=== PATIENT | female | born 1945 | race Caucasian/White ===

== ENCOUNTER 2016-11-06 14:43 | Emergency (ER) | payer MEDICARE, OTHER ==
--- NOTE | 2016-11-06 15:42 | XRAY Preliminary Report ---
Exam: XR Chest 2 View PA/LAT IMPRESSION: Normal 2-view chest radiography. [facility] SITE ID: [id number]
--- NOTE | 2016-11-06 15:44 | XRAY Report ---
EXAM: CHEST RADIOGRAPHY EXAM DATE: 11/06/2016 03:19 PM. CLINICAL HISTORY: Fatigue. Chest congestion for 3 days. COMPARISON: None. TECHNIQUE: 2 views. FINDINGS: Lungs/Pleura: No focal opacities evident. No pleural effusion. No pneumothorax. Normal volumes. Mediastinum: Heart and mediastinal contours are unremarkable. Other: No bony abnormality noted. IMPRESSION: Normal 2-view chest radiography. [facility] Referring Provider Line: [phone] SITE ID: [id number]
[2016-11-06 16:11] VITALS: BP 148/77
[2016-11-06 16:11] LABS: BILIRUBIN,URINE NEGATIVE (NEGATIVE); UA CHARGE (STRIP ONLY) YES; UR CULTURE IF IND NOT INDICATED
--- NOTE | 2016-11-06 16:47 | ED Physician Documentation ---
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 - Present Medications Home Medications: Ambulatory Orders Medication Instructions Recorded Confirmed Amitriptyline [Elavil] 25 mg PO PRN PRN 11/06/16 11/06/16 Propranolol ER [Inderal LA] 1 tab PO DAILY 11/06/16 11/06/16 - Allergies Allergies/Adverse Reactions: Allergies Allergy/AdvReac Type Severity Reaction Status Date / Time No Known Drug Allergies Allergy Verified 11/06/16 14:59 - Social History Does the pt smoke?: No Smoking Status: Never smoker Does the pt drink ETOH?: No Does the pt have substance abuse?: No - Immunizations Immunizations are current?: Yes - POLST Patient has POLST: No PD ED PE NORMAL - Vitals Vital signs reviewed: Yes - General General: Alert and oriented X 3 - HEENT HEENT: Moist mucous membranes, Pharynx benign - Neck Neck: Supple, no meningeal sign - Cardiac Cardiac: RRR - Respiratory Respiratory: No respiratory distress, Clear bilaterally - Abdomen Abdomen: Soft, Non tender - Derm Derm: Normal color - Extremities Extremities: No deformity - Neuro Neuro: Alert and oriented X 3 - Psych Psych: Normal mood Results - Vitals Vitals: Vital Signs - 24 hr 11/06/16 11/06/16 14:58 16:11 Temperature 36.3 C L 36.4 C L Heart Rate 63 63 Respiratory 16 18 Rate Blood Pressure 149/77 H 148/77 H O2 Saturation 98 100 Oxygen O2 Source Room air - Labs Labs: Laboratory Tests 11/06/16 11/06/16 11/06/16 16:00 16:55 16:55 WBC 10.3 RBC 4.27 Hgb 14.1 Hct 39.8 MCV 93.2 MCH 33.0 H MCHC 35.4 RDW 12.5 Plt Count 420 MPV 7.1 L Neut # 6.3 Lymph # 3.3 [place] # 0.6 Eos # 0.0 Baso # 0.0 Absolute Nucleated RBC 0.00 Nucleated RBCs 0.0 Sodium 138 Potassium 3.6 Chloride 99 L Carbon Dioxide 29 Anion Gap 10.0 BUN 14 Creatinine 1.0 Estimated GFR (MDRD) 55 L Glucose 98 Lactic Acid Calcium 9.5 Urine Color YELLOW Urine Clarity CLEAR Urine pH 6.0 Ur Specific [place] 1.020 Urine Protein NEGATIVE Urine Glucose (UA) NEGATIVE Urine Ketones NEGATIVE Urine Occult Blood NEGATIVE Urine Nitrite NEGATIVE Urine Bilirubin NEGATIVE Urine Urobilinogen 0.2 (NORMAL) Ur Leukocyte Esterase NEGATIVE Ur Microscopic Review NOT INDICATED Urine Culture Comments NOT INDICATED 11/06/16 17:01 WBC RBC Hgb Hct MCV MCH MCHC RDW Plt Count MPV Neut # Lymph # [place] # Eos # Baso # Absolute Nucleated RBC Nucleated RBCs Sodium Potassium Chloride Carbon Dioxide Anion Gap BUN Creatinine Estimated GFR (MDRD) Glucose Lactic Acid 0.7 Calcium Urine Color Urine Clarity Urine pH Ur Specific [place] Urine Protein Urine Glucose (UA) Urine Ketones Urine Occult Blood Urine Nitrite Urine Bilirubin Urine Urobilinogen Ur Leukocyte Esterase Ur Microscopic Review Urine Culture Comments - Rads (name of study) CXR Radiology: See rad report (NACPD) Departure - Departure Disposition: 01 Home, Self Care Clinical Impression: Chills Condition: Good Instructions: ED Bacteremia Rule Out Comments: Right now all your tests are reassuring. The xray does not show pneumonia The urine does not show an infection The lactate which helps identify blood stream infections and sepsis was normal That does not mean an infection is not there - just that it cannot be identified at this time - you could be in the early stages of something significant like your prior infections. At this point I recommend we wait and see how things progress and develop over the next 24-48 hours If you feel worse, come back to the ER And if your blood or urine cultures are positive we will call you. Otherwise see your PMD for a recheck next week Also please get your blood pressure rechecked - it was high today
[2016-11-06 17:08] LABS: BASOPHILS % (AUTO) 0.4 %; EOSINOPHILS % (AUTO) 0.4 %; HCT - HEMATOCRIT 39.8 % (37.0-47.0); HGB - HEMOGLOBIN 14.1 g/dL (12.0-16.0); LYMPHOCYTES # (AUTO) 3.3 10^3/uL (1.5-3.5); LYMPHOCYTES % (AUTO) 32.3 %; MEAN CORPUSCULAR HGB CONC 35.4 g/dL (32.0-36.0); MEAN CORPUSCULAR VOLUME 93.2 fL (81.0-99.0); MEAN PLATELET VOLUME 7.1 fL (7.9-10.8); MONOCYTES # (AUTO) 0.6 10^3/uL (0.0-1.0); MONOCYTES % (AUTO) 5.6 %; NEUTROPHILS # (AUTO) 6.3 10^3/uL (1.5-6.6); NEUTROPHILS % (AUTO) 61.3 %; RED BLOOD COUNT 4.27 10^6/uL (4.20-5.40); RED CELL DISTRIBUTION WIDTH 12.5 % (12.0-15.0); UNCORRECTED WHITE BLOOD COUNT 10.3 x10^3/uL; WHITE BLOOD COUNT 10.3 x10^3/uL (4.8-10.8)
[2016-11-06 17:16] LABS: CALCIUM 9.5 mg/dL (8.5-10.3); POTASSIUM 3.6 mmol/L (3.5-5.0)
== END 2016-11-06 18:32 | disposition home or self-care (01) ==
LOC: ED 14:43
DX: R68.83 Chills (without fever) (principal)
CPT/HCPCS: 36415; 71020; 80048; 81001; 81003; 83605; 85025; 87040; 87086; 99283

== ENCOUNTER 2018-08-10 16:26 | Emergency (ER) | payer MEDICARE, OTHER ==
[2018-08-10 16:59] LABS: BASOPHILS # (AUTO) 0.1 10^3/uL (0.0-0.1); BASOPHILS % (AUTO) 0.8 %; EOSINOPHILS # (AUTO) 0.1 10^3/uL (0.0-0.7); EOSINOPHILS % (AUTO) 1.4 %; HGB - HEMOGLOBIN 13.3 g/dL (12.0-16.0); LYMPHOCYTES # (AUTO) 3.6 10^3/uL (1.5-3.5); LYMPHOCYTES % (AUTO) 39.9 %; MEAN CORPUSCULAR HEMOGLOBIN 32.9 pg (27.0-31.0); MEAN CORPUSCULAR VOLUME 96.8 fL (81.0-99.0); MEAN PLATELET VOLUME 9.4 fL (7.9-10.8); MONOCYTES # (AUTO) 0.9 10^3/uL (0.0-1.0); MONOCYTES % (AUTO) 9.5 %; NEUTROPHILS # (AUTO) 4.4 10^3/uL (1.5-6.6); NEUTROPHILS % (AUTO) 48.2 %; PLT - PLATELET COUNT 407 10^3/uL (130-450); RED BLOOD COUNT 4.04 10^6/uL (4.20-5.40); RED CELL DISTRIBUTION WIDTH 12.5 % (12.0-15.0); WHITE BLOOD COUNT 9.1 x10^3/uL (4.8-10.8)
--- NOTE | 2018-08-10 17:05 | ED Physician Documentation ---
History of Present Illness - Stated complaint Stated Complaint: WEAK/TIRES/CHILLS - Chief complaint Chief Complaint: General - History obtained from History obtained from: Patient - History of Present Illness Timing: How many weeks ago (1) Pain level max: 0 Pain level now: 0 - Additonal information Additional information: 73-year-old female presents to the emergency department stating that she "just does not feel well". She is really unable to explain this any further other than she just feels tired. Denies any fevers, nausea, vomiting, abdominal pain. No chest pain. No shortness of breath. No recent travel. No recent antibiotics. Better with rest and worse with exertion. No changes to her medications. Review of Systems Respiratory: denies: Cough GI: denies: Nausea, Vomiting, Diarrhea : denies: Dysuria, Frequency, Hesitancy Skin: denies: Rash Musculoskeletal: denies: Neck pain, Back pain Neurologic: reports: Generalized weakness. 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 - Present Medications Home Medications: Ambulatory Orders Medication Instructions Recorded Confirmed Amitriptyline [Elavil] 25 mg PO PRN PRN 11/06/16 11/06/16 Propranolol ER [Inderal LA] 1 tab PO DAILY 11/06/16 11/06/16 - Allergies Allergies/Adverse Reactions: Allergies Allergy/AdvReac Type Severity Reaction Status Date / Time No Known Drug Allergies Allergy Verified 08/10/18 16:33 - Social History Does the pt smoke?: No Smoking Status: Never smoker Does the pt drink ETOH?: No Does the pt have substance abuse?: No - Immunizations Immunizations are current?: Yes - POLST Patient has POLST: No PD ED PE NORMAL - Vitals Vital signs reviewed: Yes - General General: Alert and oriented X 3, No acute distress, Well developed/nourished - HEENT HEENT: PERRL, Moist mucous membranes - Neck Neck: Supple, no meningeal sign - Cardiac Cardiac: RRR, No murmur, Strong equal pulses - Respiratory Respiratory: No respiratory distress, Clear bilaterally - Abdomen Abdomen: Soft, Non tender, Non distended - Back Back: No spinal TTP - Derm Derm: Warm and dry - Extremities Extremities: No edema, No calf tenderness / cord - Neuro Neuro: Alert and oriented X 3 - Psych Psych: Normal mood, Normal affect Results - Vitals Vitals: Vital Signs - 24 hr 08/10/18 08/10/18 16:29 19:19 Temperature 36.5 C 36.4 C L Heart Rate 66 63 Respiratory 17 17 Rate Blood Pressure 175/75 H 154/73 H O2 Saturation 100 100 Oxygen O2 Source Room air - EKG (time done) 1639 Rate: Rate (enter#) (68) Rhythm: NSR [place]: Normal Intervals: Normal HI QRS: Normal Ischemia: Normal ST segments - Labs Labs: Laboratory Tests 08/10/18 08/10/18 08/10/18 16:45 16:45 16:45 WBC 9.1 RBC 4.04 L Hgb 13.3 Hct 39.1 MCV 96.8 MCH 32.9 H MCHC 34.0 RDW 12.5 Plt Count 407 MPV 9.4 Neut # (Auto) 4.4 Lymph # (Auto) 3.6 H [place] # (Auto) 0.9 Eos # (Auto) 0.1 Baso # (Auto) 0.1 Absolute Nucleated RBC 0.00 Nucleated RBC % 0.0 Sodium 136 Potassium 4.2 Chloride 101 Carbon Dioxide 26 Anion Gap 9.0 BUN 15 Creatinine 1.1 H Estimated GFR (MDRD) 49 L Glucose 100 Calcium 9.3 Total Bilirubin 0.7 AST 22 ALT 25 Alkaline Phosphatase 84 Troponin I < 0.04 Total Protein 7.8 Albumin 4.5 Globulin 3.3 Albumin/Globulin Ratio 1.4 Lipase 33 TSH Urine Color Urine Clarity Urine pH Ur Specific [place] Urine Protein Urine Glucose (UA) Urine Ketones Urine Occult Blood Urine Nitrite Urine Bilirubin Urine Urobilinogen Ur Leukocyte Esterase Ur Microscopic Review Urine Culture Comments 08/10/18 08/10/18 16:45 18:00 WBC RBC Hgb Hct MCV MCH MCHC RDW Plt Count MPV Neut # (Auto) Lymph # (Auto) [place] # (Auto) Eos # (Auto) Baso # (Auto) Absolute Nucleated RBC Nucleated RBC % Sodium Potassium Chloride Carbon Dioxide Anion Gap BUN Creatinine Estimated GFR (MDRD) Glucose Calcium Total Bilirubin AST ALT Alkaline Phosphatase Troponin I Total Protein Albumin Globulin Albumin/Globulin Ratio Lipase TSH 2.89 Urine Color YELLOW Urine Clarity CLEAR Urine pH 6.5 Ur Specific [place] <=1.005 Urine Protein NEGATIVE Urine Glucose (UA) NEGATIVE Urine Ketones NEGATIVE Urine Occult Blood NEGATIVE Urine Nitrite NEGATIVE Urine Bilirubin NEGATIVE Urine Urobilinogen 0.2 (NORMAL) Ur Leukocyte Esterase NEGATIVE Ur Microscopic Review NOT INDICATED Urine Culture Comments NOT INDICATED - Rads (name of study) cxr Radiology: Prelim report reviewed, EMP read contemporaneously, See rad report (No acute cardiopulmonary process. ) PD MEDICAL DECISION MAKING - ED course Complexity details: reviewed results, re-evaluated patient, considered differ ential, d/w patient ED course: 73-year-old female with general feeling of unwellness of unclear etiology. No acute lab findings, EKG, chest x-ray. Recommend a cardiac stress test and echocardiogram with her doctor. She is well-appearing, nontoxic. Afebrile. Tolerating p.o. without difficulty. Ambulating with normal gait. Patient counseled regarding signs and symptoms for which I believe and urgent re- evaluation would be necessary. Patient with good understanding of and agreement to plan and is comfortable going home at this time This document was made in part using voice recognition software. While efforts are made to proofread this document, sound alike and grammatical errors may occur. Departure - Departure Disposition: 01 Home, Self Care Clinical Impression: Weakness Condition: Good Instructions: ED Weakness [facility] Follow-Up: OUMAR IVY [Primary Care Provider] - Within 3 Days Comments: The cause of your symptoms is unclear today. Your testing is normal. You should have a cardiac echo performed with your doctor. Return if you worsen Discharge Date/Time: 08/10/18 19:20
[2018-08-10 17:07] LABS: ALBUMIN 4.5 g/dL (3.2-5.5); ALBUMIN/GLOBULIN RATIO 1.4 (1.0-2.2); BILIRUBIN,TOTAL 0.7 mg/dL (0.2-1.0); CALCIUM 9.3 mg/dL (8.5-10.3); CREATININE 1.1 mg/dL (0.4-1.0); TOTAL PROTEIN 7.8 g/dL (6.7-8.2)
[2018-08-10 18:13] LABS: BILIRUBIN,URINE NEGATIVE (NEGATIVE); GLUCOSE, URINE (UA) NEGATIVE (NEGATIVE); KETONES,URINE (UA) NEGATIVE (NEGATIVE); LEUKOCYTE ESTERASE, URINE NEGATIVE (NEGATIVE); NITRITE,URINE NEGATIVE (NEGATIVE); OCCULT BLOOD,URINE NEGATIVE (NEGATIVE); PH,URINE 6.5 PH (5.0-7.5); PROTEIN,URINE NEGATIVE (NEGATIVE); UROBILINOGEN,URINE 0.2 (NORMAL) E.U./dL (NORMAL)
[2018-08-10 18:18] LABS: CLARITY,URINE CLEAR (CLEAR)
--- NOTE | 2018-08-10 18:53 | XRAY Report ---
Reason: dyspnea Procedure Date: 08/10/2018 Accession Number: [id number] / [id number] Procedure: XR - Chest 1 View X-Ray CPT Code: 98163 FULL RESULT: EXAM: CHEST RADIOGRAPHY EXAM DATE: 08/10/2018 06:40 PM. CLINICAL HISTORY: Dyspnea. COMPARISON: CHEST 2 VIEW PA/LAT 11/06/2016 3:12 PM. TECHNIQUE: 1 view. FINDINGS: Lungs/Pleura: No focal opacities evident. No pleural effusion. No pneumothorax. Mediastinum: Within exam limitations, the cardiomediastinal contour is normal. Other: None. IMPRESSION: No acute cardiopulmonary process. [facility]
[2018-08-10 19:20] VITALS: BP 154/73
== END 2018-08-10 19:20 | disposition home or self-care (01) ==
LOC: ED 16:26
DX: R53.1 Weakness (principal)
CPT/HCPCS: 36415; 71045; 80053; 81001; 81003; 83690; 84443; 84484; 85025; 87086; 93005; 99283

== ENCOUNTER 2019-04-03 13:40 | Emergency (ER) | payer MEDICARE, OTHER ==
[2019-04-03 14:07] LABS: BILIRUBIN,URINE NEGATIVE (NEGATIVE); GLUCOSE, URINE (UA) NEGATIVE (NEGATIVE); KETONES,URINE (UA) NEGATIVE (NEGATIVE); LEUKOCYTE ESTERASE, URINE LARGE (NEGATIVE); NITRITE,URINE NEGATIVE (NEGATIVE); OCCULT BLOOD,URINE LARGE (NEGATIVE); PROTEIN,URINE 30 mg/dL (NEGATIVE); UROBILINOGEN,URINE 0.2 (NORMAL) E.U./dL (NORMAL)
[2019-04-03 14:08] LABS: CLARITY,URINE CLOUDY (CLEAR)
[2019-04-03 14:15] LABS: BACTERIA,URINE None Seen /HPF (None Seen); RBC,URINE 0-5 /HPF (0-5); SQUAMOUS EPITHELIAL CELL,UR NONE SEEN (<= Few)
[2019-04-03] MEDS ORDERED: cephALEXin 250 MG CAPSULE PO STA (15:47)
[2019-04-03] MEDS ORDERED: PHENAZOPYRIDINE 100 MG TABLET PO STA (15:48)
--- NOTE | 2019-04-03 15:49 | ED Physician Documentation ---
History of Present Illness - Stated complaint Stated Complaint: FEM - Chief complaint Chief Complaint: UTI - History obtained from History obtained from: Patient - History of Present Illness Timing: Today Pain level max: 2 Pain level now: 1 - Additonal information Additional information: 74-year-old female with dysuria, urgency, frequency started today. No fevers. No nausea. No vomiting. No back pain. No abdominal pain. Worse with urination, better with rest. Feels similar to past UTIs. 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 - Present Medications Home Medications: Ambulatory Orders Medication Instructions Recorded Confirmed Amitriptyline [Elavil] 25 mg PO PRN PRN 11/06/16 11/06/16 Propranolol ER [Inderal LA] 1 tab PO DAILY 11/06/16 11/06/16 Cephalexin [Keflex] 500 mg PO Q6H #20 capsule 04/03/19 Phenazopyridine HCl [Pyridium] 200 mg PO TID PRN #6 tablet 04/03/19 - Allergies Allergies/Adverse Reactions: Allergies Allergy/AdvReac Type Severity Reaction Status Date / Time No Known Drug Allergies Allergy Verified 04/03/19 13:46 - Social History Does the pt smoke?: No Smoking Status: Never smoker Does the pt drink ETOH?: No Does the pt have substance abuse?: No - Immunizations Immunizations are current?: Yes - POLST Patient has POLST: No PD ED PE NORMAL - Vitals Vital signs reviewed: Yes - General General: Alert and oriented X 3, No acute distress - HEENT HEENT: Moist mucous membranes - Abdomen Abdomen: Soft, Non tender, Non distended - Back Back: No CVA TTP - Derm Derm: Warm and dry - Neuro Neuro: Alert and oriented X 3 Results - Vitals Vitals: Vital Signs - 24 hr 04/03/19 13:47 Temperature 36.5 C Heart Rate 78 Respiratory 14 Rate Blood Pressure 156/82 H O2 Saturation 100 Oxygen O2 Source Room air - Labs Labs: Laboratory Tests 04/03/19 13:59 Urine Color YELLOW Urine Clarity CLOUDY Urine pH 7.0 Ur Specific [place] 1.010 Urine Protein 30 H Urine Glucose (UA) NEGATIVE Urine Ketones NEGATIVE Urine Occult Blood LARGE H Urine Nitrite NEGATIVE Urine Bilirubin NEGATIVE Urine Urobilinogen 0.2 (NORMAL) Ur Leukocyte Esterase LARGE H Urine RBC 0-5 Urine WBC 6-10 H Ur Squamous Epith Cells NONE SEEN Urine Bacteria None Seen Ur Microscopic Review INDICATED Urine Culture Comments INDICATED PD MEDICAL DECISION MAKING - ED course Complexity details: considered differential, d/w patient ED course: Patient with a UTI. Will place on Pyridium and Keflex. Patient is well- appearing, nontoxic. No pyelonephritis. No sepsis. Patient counseled regarding signs and symptoms for which I believe and urgent re-evaluation would be necessary. Patient with good understanding of and agreement to plan and is comfortable going home at this time This document was made in part using voice recognition software. While efforts are made to proofread this document, sound alike and grammatical errors may occur. Departure - Departure Disposition: 01 Home, Self Care Clinical Impression: Urinary tract infection Qualifiers: Urinary tract infection type: acute cystitis Hematuria presence: without hematuria Qualified Code(s): N30.00 - Acute cystitis without hematuria Condition: Good Instructions: ED UTI Cystitis Female Follow-Up: OUMAR IVY [Primary Care Provider] - As Needed Prescriptions: Cephalexin [Keflex] 500 mg PO Q6H #20 capsule Phenazopyridine HCl [Pyridium] 200 mg PO TID PRN #6 tablet PRN Reason: dysuria Comments: Take all antibiotics until gone. Return if you worsen. Follow-up with your doctor if you are not better in 1 week.
[2019-04-03 15:56] VITALS: BP 150/80
== END 2019-04-03 15:55 | disposition home or self-care (01) ==
LOC: ED 13:40
DX: N30.00 Acute cystitis without hematuria (principal)
CPT/HCPCS: 81001; 87077; 87086; 87181; 99283; 99284; A9270; 81003

== ENCOUNTER 2021-08-07 16:52 | Emergency (ER) | payer MEDICARE, OTHER ==
--- NOTE | 2021-08-07 19:23 | ED Physician Documentation ---
History of Present Illness - Stated complaint Stated Complaint: SINUS PRESSURE - Chief complaint Chief Complaint: Heent - Additonal information Additional information: 76-year-old female presents emergency department for evaluation of significant tenderness to the right frontal and maxillary sinuses. She also had about 20 minutes of epistaxis this morning which she was able to control with pressure. She is not anticoagulated. Sinus pressure and pain began about 3 days ago. She reports a history of chronic sinus and allergy Disorder for which she does daily nasal spray, Nasonex as well as allergy medications. She has been having a lot of yellow drainage from the nose. She is also begun to have watering from the right eye with pain. No fevers. No recent travel. Fully vaccinated for COVID-19. Denies chest pain cough congestion or sore throat. 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 - Present Medications Home Medications: Ambulatory Orders Medication Instructions Recorded Confirmed Amitriptyline [Elavil] 25 mg PO PRN PRN 11/06/16 11/06/16 Propranolol ER [Inderal LA] 1 tab PO DAILY 11/06/16 11/06/16 Phenazopyridine HCl [Pyridium] 200 mg PO TID PRN #6 tablet 04/03/19 cephALEXin [Keflex] 500 mg PO Q6H #20 capsule 04/03/19 Amox/Clav 875/125 [Augmentin] 1 each PO Q12H #20 tablet 08/07/21 - Allergies Allergies/Adverse Reactions: Allergies Allergy/AdvReac Type Severity Reaction Status Date / Time No Known Drug Allergies Allergy Verified 08/07/21 17:08 - Social History Does the pt smoke?: No Smoking Status: Never smoker Does the pt drink ETOH?: No Does the pt have substance abuse?: No - Immunizations Immunizations are current?: Yes - POLST Patient has POLST: No PD ED PE EXPANDED - General General: Alert, No acute distress, Well developed/nourished - HEENT HEENT: Ears normal, Pharynx normal, Other (Percussion tenderness of the right frontal maxillary sinuses) - Cardiac Cardiac: Regular Rate, Murmur Present, Radial strong equal, Pedal strong equal, Cap refill < 2 sec - Respiratory Respiratory: Clear to ausultation jessie. No: Distress, Labored - Abdomen Abdomen: Normal Bowel sounds. No: Tender to palpation Results - Vitals Vitals: Vital Signs - 24 hr 08/07/21 17:08 Temperature 36.3 C L Heart Rate 78 Respiratory 16 Rate Blood Pressure 158/60 H O2 Saturation 100 Oxygen O2 Source Nasal cannula - Rads (name of study) max fac ct Radiology: Final report received (Complete opacification left sphenoid sinus. Moderate mucosal thickening within the left posterior ethmoid air cells. Mastoid air cells are aerated. Sinus disease no fracture.) PD MEDICAL DECISION MAKING - ED course Complexity details: reviewed results, re-evaluated patient, considered differential, d/w patient ED course: 76-year-old female presents emergency department for evaluation of 3 days acute right-sided facial pain. She does have watering of the right eye. Her pain seems out of proportion for reported history of chronic sinus congestion. She has not had any fevers. A maxillofacial CT was completed and there were no findings to suggest mass or lesion. However she does have fairly significant bilateral sinus disease. She is started on Augmentin. Do recommend saline nasal rinses followed by Nasonex. Follow-up with PCP. Given the extensive disease may benefit from referral to an ear nose throat doctor. Departure - Departure Disposition: 01 Home, Self Care Clinical Impression: Right sided facial pain Sinusitis Qualifiers: Sinusitis location: unspecified location Chronicity: chronic Qualified Code(s): J32.9 - Chronic sinusitis, unspecified Condition: Stable Record reviewed to determine appropriate education?: Yes Prescriptions: Amox/Clav 875/125 [Augmentin] 1 each PO Q12H #20 tablet Comments: Liliane you are seen today in the emergency department for sudden severe pain on the right side of your face. You do have a chronic history of sinus congestion. I do recommend that when you are in the shower you use a saline nasal rinse or the [place]mler pot. When out of the shower after using the nasal rinse then use the Nasonex nasal spray. Please fill the prescription for the antibiotics and begin taking twice daily as directed. Given the extensive sinus disease seen on the CT scan and the chronicity of your symptoms you may benefit from referral to an ear nose throat doctor to determine if you would benefit from further therapy through the specialist. If despite this treatment you have facial swelling, develop any fevers, have purulent drainage from your sinuses then please return immediately to the ER for second evaluation.
--- NOTE | 2021-08-07 19:45 | CT Report ---
PROCEDURE: MAXILLOFACIAL WO INDICATIONS: Right sinus pressure and congestion. Epistaxis. TECHNIQUE: Noncontrast 1.5 mm thick axial images acquired from the mandible through the frontal sinuses, with co lonnie and sagittal reformatting. For radiation dose reduction, the following was used: automated ex posure control, adjustment of mA and/or kV according to patient size. COMPARISON: None. FINDINGS: Image quality: Excellent. Bones and teeth: Orbital santana are intact. Sinus santana show no fracture or deformity. Nasal bones and septum are intact. Visualized portions of the mandible demonstrate no fractures or subluxation. Zygomatic arches are intact. Pterygoid plates are intact. Visualized portions of the skull base an d auditory canals are intact. Sinuses: Complete opacification of left sphenoid sinus. Moderate mucosal thickening within the left p osterior ethmoid air cells. Mastoid air cells are aerated. Soft tissues: No edema, masses, or fluid collections. No enlarged lymph nodes. No soft tissue lace rations or debris. Vascular: Visualized vascular structures appear normal in the absence of contrast. Bony vascular fo ramina and canals are intact. IMPRESSION: Sinus disease. No fracture. Reviewed by: Elle Reyes MD on 08/07/2021 7:44 PM PDT Approved by: Elle Reyes MD on 08/07/2021 7:44 PM PDT Station ID: [id number]
[2021-08-07] MEDS ORDERED: AMOX/CLAV 875 MG/125 MG TABLET PO STA (19:56)
[2021-08-07 20:06] VITALS: BP 142/76
== END 2021-08-07 20:05 | disposition home or self-care (01) ==
LOC: ED 16:52
DX: J32.9 Chronic sinusitis, unspecified (principal)
CPT/HCPCS: 70486; 99284; A9270